=== PATIENT | male | born 2000 | race Caucasian/White ===

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

== ENCOUNTER 2019-12-09 00:25 | Emergency (ER) | payer BC, OTHER ==
[2019-12-09] MEDS ORDERED: Benzonatate 100 MG CAP ONE (00:48)
[2019-12-09] MEDS ORDERED: Acetaminophen/Codeine 30-300mg Tablet ONE (00:55)
--- NOTE | 2019-12-09 07:53 | RAD ---
RADIOGRAPH CHEST 1 VIEW: DATE: 12/09/2019 1:01 AM HISTORY: 19-year-old male with cough FINDINGS: The visualized lung calabrese are clear. The cardiomediastinal silhouette and hilar shadows are normal. The lateral costophrenic angles are sharp. The osseous structures appear normal. There is no pneumothorax. IMPRESSION: Negative.
== END 2019-12-09 01:14 ==
LOC: MADERS 00:25
DX: R05 Cough (principal); J45.909 Unspecified asthma, uncomplicated; F41.9 Anxiety disorder, unspecified; F32.9 Major depressive disorder, single episode, unspecified; F17.210 Nicotine dependence, cigarettes, uncomplicated; Z79.899 Other long term (current) drug therapy
CPT/HCPCS: 71045

== ENCOUNTER 2020-03-04 17:15 | Emergency (ER) | payer BC, OTHER ==
[2020-03-04] MEDS ORDERED: Lidocaine 1% w/Epinephrine 1:100K 20 ML VIAL ONE (17:36)
[2020-03-04] MEDS ORDERED: Boostrix 0.5 ML (Tdap) VIAL ONE (17:37)
== END 2020-03-04 18:55 | disposition home or self-care (01) ==
LOC: MADERS 17:15
DX: S61.211A Laceration without foreign body of left index finger without damage to nail, initial encounter (principal); S61.213A Laceration without foreign body of left middle finger without damage to nail, initial encounter; J45.909 Unspecified asthma, uncomplicated; F17.220 Nicotine dependence, chewing tobacco, uncomplicated; W26.0XXA Contact with knife, initial encounter
CPT/HCPCS: 90715

== ENCOUNTER 2021-03-11 12:51 | Emergency (ER) | payer BC ==
[2021-03-11 14:19] LABS: SARS-CoV-2 NAA Rapid Test Not Detected (NotDetected)
[2021-03-11] MEDS ORDERED: Ondansetron ODT 4 MG TAB ONE (14:31)
== END 2021-03-11 14:50 ==
LOC: MADERS 12:51
DX: B34.9 Viral infection, unspecified (principal); J45.909 Unspecified asthma, uncomplicated; F17.210 Nicotine dependence, cigarettes, uncomplicated; Z20.822 Contact with and (suspected) exposure to COVID-19
CPT/HCPCS: 99284; Q0162; U0002